=== PATIENT | female | born 1960 ===

== ENCOUNTER 2019-12-21 14:00 | Inpatient (IN) | payer OTHER ==
[~2019-12-21] VITALS: Ht 160 cm; Wt 80.3 kg
[2019-12-21] MEDS ORDERED: ACTOS15 MG PO (16:35)
[2019-12-21] MEDS ORDERED: ZESTRIL10 M1 PO (16:36)
[2019-12-21] MEDS ORDERED: CRESTOR10 MG PO (16:37)
[2019-12-21] MEDS ORDERED: JANUMET XR 50-1 EAC1 PO (16:37)
[2019-12-21] MEDS ORDERED: MONTELUKAST SOD10 MG PO (16:37)
[2019-12-21] MEDS ORDERED: IRON325 MG PO (16:38)
[2019-12-21] MEDS ORDERED: VITAMIN D350000 UNIT PO (16:39)
== END 2019-12-27 11:02 | DRG 735 ==
LOC: OB/GYN 12-25 05:50 → O/R 12-25 05:50 → OB/GYN 12-25 07:00 → O/R 12-25 14:00 → OB/GYN 12-27 11:02
PROVIDERS: ADMIT Obstetrics & Gynecology Gynecologic Oncology
PROC: 0UT90ZZ Resection of Uterus, Open Approach (ICD-10-PCS; 2019-12-25)
PROC: 0UT20ZZ Resection of Bilateral Ovaries, Open Approach (ICD-10-PCS; 2019-12-25)
PROC: 0UT70ZZ Resection of Bilateral Fallopian Tubes, Open Approach (ICD-10-PCS; 2019-12-25)
PROC: 07TC0ZZ Resection of Pelvis Lymphatic, Open Approach (ICD-10-PCS; principal; 2019-12-25 07:00)
DX: C54.1 Malignant neoplasm of endometrium (principal); N72 Inflammatory disease of cervix uteri